=== PATIENT | male | born 1985 | race Two or more races ===

== ENCOUNTER 2019-08-04 07:44 | Outpatient (CLI) | payer OTHER ==
[~2019-08-04] VITALS: Ht 182.9 cm; Wt 90.7 kg
[2019-08-04] MEDS ORDERED: Isovue-M 300 15ml INJ ONE (07:45)
[2019-08-04] MEDS ORDERED: PROSCAR5 MG ORAL (08:03)
[2019-08-04 08:14] VITALS: BP 137/89
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
--- NOTE | 2019-08-04 08:43 | Pre-Procedure Note/Attestation ---
Pre-Procedure Note/Attestation Complete Prior to Procedure Planned Procedure: bilateral Procedure Narrative: L4-L5 and L5-S1 intra-articular facet injection. Indications for Procedure Pre-Operative Diagnosis: lumbosacral spondylosis Attestation I attest that I discussed the nature of the procedure; its benefits; risks and complications; and alternatives (and the risks and benefits of such alternatives ), prior to the procedure, with the patient (or the patient's legal in store marketing representative). I attest that, if there was a reasonable possibility of needing a blood transfusion, the patient (or the patient's legal in store marketing representative) was given the [facility] standardized written summary, pursuant to the [place] Blood Safety Act ([place] Health and Safety Code # 1645, as amended). I attest that I re-evaluated the patient just prior to the surgery and that there has been no change in the patient's H&P, except as documented below: Casie Bonilla MD Aug 04, 2019 08:43
[2019-08-04] MEDS ORDERED: Omnipaque-300 100ml vial INJ ONE (08:45)
[2019-08-04 09:15] VITALS: BP 130/72
--- NOTE | 2019-08-04 09:18 | Brief Operative Note ---
Immediate Post Operative Note Operative Note Chief Complaint: Lower back pain with radiation into the legs Pre-op Diagnosis: lumbosacral spondylosis Procedure: Bilateral L4-L5 and L5-S1 intra-articular facet injection with platelet rich plasma. Post-op Diagnosis: Lumbosacral spondylosis with radiculopathy Post-op Diagnosis: same as pre-op Findings: consistent w/pre-op dx studies Surgeon: Casie Bonilla MD Dental Laboratory Technology Teacher: None Additional Surgeons: None Anesthesiologist: None Anesthesia: local Specimen: none Complications: none Condition: stable Fluids: none Estimated Blood Loss: none Drains: none Packing: none Tourniquet time: 0 Implant(s) used?: Casie Beaver MD Aug 04, 2019 09:18
--- NOTE | 2019-08-04 09:22 | Discharge Summary ---
Discharge Summary Hospital Course Date of Admission 08/04/19 Date of Discharge 08/04/19 Admitting Diagnosis Lumbosacral spondylosis with radiculopathy. HPI Sesar Jesus is a 33 year old male who was admitted on for Spondylosis without myelopathy or radiculopathy Consultations none Procedures Bilateral L4-L5 and L5-S1 intra-articular facet injections with platelet rich plasma. Hospital Course short stay Discharge Condition Upon Discharge: stable Discharge Disposition Patient was discharged to home with . Discharge Diagnoses: (1) Lumbosacral spondylosis with radiculopathy Discharge Instructions Discharge Instructions Assessment stable Follow up with: Dr. Bonilla Diet: regular Follow Up Orders Follow up 09/01/19. For Surgical Patients Dressing Care: keep dry and clean May shower: Yes Contact your physician for: bleeding, pain, tenderness, redness, swelling, yellowish discharge in the op. site Casie Bonilla MD Aug 04, 2019 09:22
--- NOTE | 2019-08-04 15:10 | Diagnostic Imaging Report ---
Indication: Intraoperative imaging COMPARISON: None FINDINGS: Multiple fluoroscopic images were obtained intraoperatively during the lumbar epidural procedure. Fluoroscopic time 44 seconds. Fluoroscopic images demonstrating L4-5 and L5-S1 epidural injections. This appears to be bilateral. IMPRESSION: Intraoperative imaging as described above
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
== END 2019-08-04 09:30 | disposition home or self-care (01) ==
LOC: RAD 07:44
DX: M47.9 Spondylosis, unspecified (principal); M54.17 Radiculopathy, lumbosacral region
CPT/HCPCS: 62323; 76000; Q9967

== ENCOUNTER 2019-11-03 08:42 | Outpatient (CLI) | payer OTHER ==
[~2019-11-03] VITALS: Ht 182.9 cm; Wt 92.1 kg
[~2019-11-03 08:42] MED LIST: PROSCAR5 MG ORAL
[2019-11-03] MEDS ORDERED: Isovue-M 300 15ml INJ ONE ×2 (08:48→09:00)
--- NOTE | 2019-11-03 08:59 | Short Stay Surgery H&P ---
History of Present Illness History of Present Illness Chief Complaint Lower back pain with radiation into the groin bilaterally. HPI Sesar Jesus is a 34 year old male who was admitted on for Spondylosis without myelopathy or radiculopathy, Patient History Allergies: Coded Allergies: Shrimp (Verified Allergy, Unknown, 08/04/19) PAST MEDICAL HISTORY: (1) Lumbosacral spondylosis with radiculopathy Patient History Narrative The patient has a date of loss of Sep 29, 2018 and has developed chronic lower back pain with radiation into the bilateral groin due to disc displacements and facet pain. He failed conservative management as underwent bilateral L4-5 and L5-S1 intra-articular facet injections with PRP. He has had at least a 50% improvement in function and decrease in pain. He is here for his second set of injections. Medication History Scheduled Finasteride* (Proscar*), 5 MG ORAL DAILY, (Reported) Review of Systems Cardiovascular: Denies: no symptoms, see HPI, hypertension, CAD - stable, angina, CT, CABG, dysrhythmia, CHF, valvular disease, rheumatic heart disease, peripheral vascular disease, source of infx - skin, source of infx-indw cath, source of infx-prosthesis, other Respiratory: Denies: no symptoms, see HPI, asthma, chronic bronchitis, pneumonia, COPD, URI, tuberculosis, sleep apnea, CPAP, home 02, other Skeletal: Reports: spinal disc disease, trauma Gastrointestinal: Denies: no symptoms, see HPI, obesity, peptic ulcer disease, gastro esophageal reflux disease, hiatal hernia, jaundice, hepatitis A,B,C, other Genitourinary: Denies: no symptoms, see HPI, renal insufficiency, endstage renal disease, dialysis, UTI, urinary retention, BPH, other Neurologic: Reports: other - radiating pain into the bilateral groin Endocrine: Denies: no symptoms, see HPI, diabetes - type 1, diabetes - type 2, thyroid, post menopausal, other Hematologic: Denies: no symptoms, see HPI, anemia, coagulopathy, prior transfusion, other Plan Attestation Are the patient's medical conditions optimized for surgery? Casie Bonilla MD Nov 03, 2019 08:59
[2019-11-03 09:00] VITALS: BP 120/80
--- NOTE | 2019-11-03 09:00 | Pre-Procedure Note/Attestation ---
Pre-Procedure Note/Attestation Complete Prior to Procedure Planned Procedure: bilateral Procedure Narrative: bilateral L4-5 and L5-S1 intra-articular facet injections with PRP Indications for Procedure Pre-Operative Diagnosis: Lumbosacral spondylosis with radiculopathy Attestation I attest that I discussed the nature of the procedure; its benefits; risks and complications; and alternatives (and the risks and benefits of such alternatives ), prior to the procedure, with the patient (or the patient's legal telephone claims representative). I attest that, if there was a reasonable possibility of needing a blood transfusion, the patient (or the patient's legal telephone claims representative) was given the [place] [facility] standardized written summary, pursuant to the [place] Blood Safety Act ([place] Health and Safety Code # 1645, as amended). I attest that I re-evaluated the patient just prior to the surgery and that there has been no change in the patient's H&P, except as documented below: Casie Bonilla MD Nov 03, 2019 09:00
[2019-11-03 09:05] VITALS: BP 120/80
--- NOTE | 2019-11-03 10:02 | Brief Operative Note ---
Immediate Post Operative Note Operative Note Chief Complaint: Lower back pain with radiation into the bilateral groin. Pre-op Diagnosis: Lumbosacral spondylosis with radiculopathy Procedure: bilateral L4-5 and L5-S1 intra-articular facet injections with PRP Post-op Diagnosis: Lumbosacral spondylosis with radiculopathy. Post-op Diagnosis: same as pre-op Findings: consistent w/pre-op dx studies Surgeon: Casie Bonilla MD Gas Fitter Apprentice: none Additional Surgeons: none Anesthesiologist: none Anesthesia: local Specimen: none Complications: none Condition: stable Fluids: none Estimated Blood Loss: minimal - for PRP Drains: none Packing: none Tourniquet time: 0 - min Implant(s) used?: Casie Beaver MD Nov 03, 2019 10:02
--- NOTE | 2019-11-03 10:05 | Discharge Summary ---
Discharge Summary Hospital Course Date of Admission 11/03/2019 Date of Discharge 11/03/2019 Admitting Diagnosis Lumbosacral spondylosis with radiculopathy. Reason for Hospitalization: short stay HPI Sesar Jesus is a 34 year old male who was admitted on for Spondylosis without myelopathy or radiculopathy, Consultations none Procedures bilateral L4-5 and L5-S1 intra-articular facet injections with PRP Hospital Course short stay Discharge Medications Medication Profile: No Active Prescriptions or Reported Meds Discharge Condition Upon Discharge: stable Discharge Vital Signs Last Vital Signs Date Time Temp Pulse Resp B/P (MAP) Pulse Ox O2 Delivery O2 Flow Rate FiO2 11/03/19 09:12 Room Air 11/03/19 09:05 97.9 64 18 120/80 98 Discharge Disposition Patient was discharged to home with . Discharge Diagnoses: (1) Lumbosacral spondylosis with radiculopathy Discharge Instructions Discharge Instructions Assessment stable. Follow up with: Dr. Bonilla Diet: regular Activity: as tolerated, okay to shower Special Instructions No NSAIDS or ice for 2 weeks. No steroids for 2 weeks. For Surgical Patients Dressing Care: may change Contact your physician for: bleeding, pain, tenderness, redness, swelling, yellowish discharge in the op. site Casie Bonilla MD Nov 03, 2019 10:05
--- NOTE | 2019-11-03 10:15 | Operative Note - PDOC ---
Operative Note Operative Note Date of Operation/Procedure: Nov 03, 2019 Chief Complaint: Lower back pain with radiation into the bilateral groin. Pre-op Diagnosis: Lumbosacral spondylosis with radiculopathy Procedure: bilateral L4-5 and L5-S1 intra-articular facet injections with PRP Post-op Diagnosis: Lumbosacral spondylosis with radiculopathy. Post-op Diagnosis: same as pre-op Operative Findings: consistent w/pre-op dx studies Surgeon: Casie Bonilla MD Fall Internship: none Additional Surgeons: none Anesthesiologist: none Anesthesia: local Specimen: none Complications: none Condition: stable Fluids: none Estimated Blood Loss: minimal - for PRP Drains: none Packing: none Tourniquet time: 0 - min Implant(s) used?: No Indications for Procedure The patient has a date of loss of Sep 29, 2018. He has chronic lower back pain with radiation into his bilateral groin. He failed conservative treatment and is here for his second PRP injections into his lower two facet joints bilaterally. Description of Procedure The patient was seen and identified in the preoperative area. Risks, benefits, complications, and alternatives were discussed with the patient. The preop nurse removed 10 mL of blood from his arm and it was placed in the centrifuge for 10 min at 4000 RPM. The patient agreed to proceed with the procedure and signed the consent. The patient was placed in the prone position, and lumbosacral area was prepped with Betadine and draped in the usual sterile fashion. Critical pause was taken. Using right oblique fluoroscopy, the right L4-L5 and L5-S1 facet joints were identified, and skin and deeper tissues were anesthetized with 1% lidocaine mixed with epi. A 25-gauge 3.5-inch spinal needles was guided intra-articularly by fluoroscopy to the L4-L5 joint. The second needle was guided intra- articularly by fluoroscopy to the L5-S1 joint. Tip position was confirmed on lateral fluoroscopy. After negative aspiration of CSF and blood with no paresthesias, 0.5mL of Isoview 300 was injected illustrating excellent arthrogram. Again after negative aspiration of CSF and blood with no paresthesias, 1.5 mL of platelet rich plasma was injected into each joint. The fluoroscopic camera was then placed in the left oblique position and the same procedure was repeated on the left side. A total of 6 mL of PRP was injected. The needles were removed, skin was cleansed, and bandages were applied. The patient tolerated the procedure well without complications, and was discharged from recovery room after meeting discharge. Casie Bonilla MD Nov 03, 2019 10:15
[2019-11-03 10:46] VITALS: BP 123/70
--- NOTE | 2019-11-07 16:29 | Diagnostic Imaging Report ---
INDICATION: Pain, intraoperative TECHNIQUE: Intraoperative imaging Fluoroscopy time: 36.8 seconds Total dose: 0.08143 mGym2 Total number of images: One COMPARISON: None FINDINGS: Intraoperative images demonstrate multiple perineuralforaminal contrast injections in the lumbosacral region IMPRESSION: Intraoperative imaging as described
--- NOTE | 2019-11-21 08:24 | Diagnostic Imaging Report ---
INDICATION: Pain, intraoperative TECHNIQUE: Intraoperative imaging Fluoroscopy time: 36.8 seconds Total dose: 0.98779 mGym2 Total number of images: One COMPARISON: None FINDINGS: Intraoperative images demonstrate multiple perineuralforaminal contrast injections in the lumbosacral region IMPRESSION: Intraoperative imaging as described
== END 2019-11-03 10:25 | disposition home or self-care (01) ==
LOC: RAD 08:42
DX: M54.17 Radiculopathy, lumbosacral region (principal)
CPT/HCPCS: 62323; 64484; Q9967